=== PATIENT | male | born 1990 | race Caucasian/White ===

== ENCOUNTER 2018-04-05 21:14 | Emergency (ER) | payer SELFPAY ==
[2018-04-05 21:18] VITALS: O2SAT 99
--- NOTE | 2018-04-05 22:04 | ED PDOC ---
HPI: General Adult Time Seen by Provider: 04/05/18 21:35 Chief Complaint (Nursing): Medical Clearance Chief Complaint (Provider): Rigth foot pain History Per: Patient History/Exam Limitations: no limitations Onset/Duration Of Symptoms: Days Have you had recent travel within the past 21 days to any of the following countries: [place], [place], [place] or [place]?: No Current Symptoms Are (Timing): Still Present Additional Complaint(s): 27 yo male presents in police [employer] for evaluation of left foot pain. Pt states approx 2-4 weeks ago he injured left foot. PT states he was told it might be fractured. Pt taking naproxen and vicodin for pain. PT states he was seen in ER and was told to follow-up but hasn't yet. Pt denies SI/HI. Pt denies psychiatric diagnosis. Past Medical History Reviewed: Historical Data, Nursing Documentation, Vital Signs Vital Signs: Last Vital Signs Temp 98.0 F 04/05/18 21:15 Pulse 108 H 04/05/18 21:15 Resp 16 04/05/18 21:15 BP 139/73 04/05/18 21:15 Pulse Ox 99 04/05/18 22:12 - Medical History PMH: No Chronic Diseases - Surgical History Surgical History: No Surg Hx - Family History Family History: States: No Known Family Hx - Living Arrangements Living Arrangements: With Family - Social History Current smoker - smoking cessation education provided: No Alcohol: Occasional Drugs: Denies - Allergies Allergies/Adverse Reactions: Allergies Allergy/AdvReac Type Severity Reaction Status Date / Time No Known Allergies Allergy Verified 04/05/18 21:15 Review of Systems ROS Statement: Except As Marked, All Systems Reviewed And Found Negative Constitutional: Negative for: Fever, Chills Musculoskeletal: Positive for: Foot Pain Skin: Negative for: Bruising Psych: Negative for: Psychosis, Suicidal ideation Physical Exam - Reviewed Nursing Documentation Reviewed: Yes Vital Signs Reviewed: Yes - Physical Exam Appears: Positive for: Well, Non-toxic, No Acute Distress Head Exam: Positive for: ATRAUMATIC, NORMAL INSPECTION, NORMOCEPHALIC Skin: Positive for: Normal Color (No ecchymosis, no erythema of the foot ), Warm Eye Exam: Positive for: Normal appearance ENT: Positive for: Normal ENT Inspection Neck: Positive for: Normal Cardiovascular/Chest: Positive for: Regular Rate, Rhythm Respiratory: Positive for: CNT, Normal Breath Sounds Back: Positive for: Normal Inspection Extremity: Positive for: Normal ROM, Tenderness (left, 5th metatarsal ) Neurologic/Psych: Positive for: Alert, Oriented - ECG O2 Sat by Pulse Oximetry: 99 Medical Decision Making Medical Decision Making: No acute fracture or dislocation seen on XR of the foot. Disposition - Clinical Impression Clinical Impression: Foot pain - Patient ED Disposition Is Patient to be Admitted: No Counseled Patient/Family Regarding: Diagnosis, Need For Followup - Disposition Referrals: Podiatry Clinic [Outside] Disposition: Routine/Home Disposition Time: 22:20 Condition: STABLE Additional Instructions: Pt is medically and psychiatrically clear for incarceration. Instructions: Foot Sprain (DC) Forms: [employer] ([place]ian)
[2018-04-05 23:29] VITALS: BP 138/78; PULSE 88; RESP 18; TEMP 98.2
--- NOTE | 2018-04-06 10:01 | RAD ---
Date of service: 04/05/2018 PROCEDURE: Left Foot Radiographs. HISTORY: pain, previous fx COMPARISON: None. FINDINGS: BONES: No acute fracture or destructive bony lesion identified. JOINTS: Normal. SOFT TISSUES: Normal. OTHER FINDINGS: None. IMPRESSION: Unremarkable left foot radiographs.
== END 2018-04-05 23:46 | disposition home or self-care (01) ==
LOC: H.ER 21:14
DX: M79.672 Pain in left foot (principal)